=== PATIENT | male | born 1945 | race African-American/Black ===

== ENCOUNTER 2016-12-13 23:08 | Emergency (ER) | payer OTHER, BC ==
[~2016-12-13] VITALS: Ht 190.5 cm; Wt 88.5 kg
[2016-12-13] MEDS ORDERED: TRIAMTERENE25 GM (23:47)
[2016-12-13] MEDS ORDERED: IBUPROFEN 800800 M1 (23:48)
[2016-12-13] MEDS ORDERED: KLONOPIN0.5 MG (23:48)
[2016-12-13] MEDS ORDERED: METHOCARBAMOL500 M2 (23:49)
[2016-12-13] MEDS ORDERED: UNK PAIN MED (23:50)
[2016-12-14 00:39] LABS: ABSOLUTE NEUTROPHILS 4.3 thou/uL (1.4-8.2); BASOPHILS 0.5 % (0.0-2.0); EOSINOPHILS 3.3 % (0.0-3.0); HEMATOCRIT 38.8 % (42.0-52.0); HEMOGLOBIN 13.7 gm/dL (14.0-18.0); MANUAL DIFF NO; MCH 33.3 pg (26.0-34.0); MCHC 35.4 g/dL (28.0-37.0); MCV 94.1 fL (80.0-100.0); MONOCYTES 9.3 % (1.0-8.0); PLATELET COUNT 239 thou/uL (150-400); POLYS 56.9 % (36.0-66.0); RBC 4.12 mil/uL (4.50-6.00); RDW 12.9 % (10.5-14.5); WBC 7.6 thou/uL (4.0-11.0)
[2016-12-14 00:57] LABS: CALCIUM 8.7 mg/dL (8.5-10.1); POTASSIUM 3.3 mmol/L (3.5-5.1)
[2016-12-14 02:17] VITALS: BP 126/72
== END 2016-12-14 02:19 | disposition home or self-care (01) ==
LOC: ER 23:08
PROVIDERS: Emergency Medicine
DX: R42 Dizziness and giddiness (principal); I10 Essential (primary) hypertension; Z98.890 Other specified postprocedural states